=== PATIENT | female | born 1985 | race Caucasian/White ===

== ENCOUNTER 2016-04-03 02:15 | Emergency (ER) | payer OTHER ==
[~2016-04-03] VITALS: Ht 175.3 cm; Wt 100.0 kg
[~2016-04-03 02:15] MED LIST: CITA20TA11 PO; HYDR-656 PO; INDO75CA2 PO; POLY17PO6 PO; TRAM50TA2 PO
[2016-04-03 02:19] VITALS: BP 117/88; PULSE 76; RESP 16; O2SAT 98
--- NOTE | 2016-04-03 02:44 | ED.REPORT ---
HPI-Headache Date of Service Apr 03, 2016 ED Provider: J Carlos Keane Patient is a 30 year old female who presents to the ED complaining of a headache onset 5 hours ago. Associated symptoms include fever, nausea, and photophobia. She denies neck stiffness, head trauma, numbness, tingling, or any other symptoms. She claims this is much worse than any headache she has had before. Her sister has a hx of migraines and her mother had a brain bleed. Nursing Notes Stated Complaint: MIGRAINE Chief Complaint: Neuro Symptoms/ Deficits Nursing Notes Reviewed: Yes Allergies: Coded Allergies: Penicillins (Verified Allergy, Unknown, Rash,Itching,, 04/03/16) Swelling, redness Sulfa (Sulfonamide Antibiotics) (Verified Allergy, Unknown, Rash,Itching, , 04/03/16) Swelling, redness amoxicillin (Verified Allergy, Unknown, Rash,Itching,, 04/03/16) Swelling, redness clindamycin (Verified Allergy, Unknown, Rash, 04/03/16) Swelling, redness tetracycline (Verified Allergy, Unknown, Rash, 04/03/16) Swelling, redness Scheduled Citalopram (Citalopram) 20 Mg Tablet 20 MG PO HS hydrOXYzine Hcl (HydrOXYzine Hcl) 25 Mg Tablet 25 MG PO HS Scheduled PRN Indomethacin ER (Indomethacin ER) 75 Mg Capsule 75 MG PO DIRECTED PRN PRN Headache Prochlorperazine Maleate (Compazine Suppository) 25 Mg Supp.rect 25 MG RC Q8 PRN PRN For Nausea/Vomiting Sumatriptan (Imitrex) 100 Mg Tablet 100 MG PO t8rackm PRN PRN migraine Tramadol (Tramadol) 50 Mg Tablet 50 MG PO Q4H PRN PRN For Pain Miscellaneous Medications Polyethylene Glycol 3350 (Miralax) 17 Gm Powd.pack 17 GM PO General Time Seen by MD: 02:43 Chief Complaint Headache Hx Obtained From: Patient, Other family... (Grandmother) Arrived By: Walk-in Sudden in Onset?: Yes Onset Occurred: 5 - 8 hours ago Symptom Duration: Since onset Similar Sx Previous: No Risk-Headache )( SAH Risk Stratification 1st degree relativeNo Anticoagulation therapy, No Hypertension, No Prior SAH RF Statements: Risk factors reviewed )( IC Mass Risk Stratification No HIV RF Statements: Risk factors reviewed Past Medical History Past Medical History Reports: Asthma Past Surgical History R oopherectomy, 2 right ovarian cyst removals, adhesions removed Reports: Cholecystectomy Family History Father had CABG x3 at age 44 Smoking History Never Smoker Social History Alcohol Use: "Social" Drug Use: Denies drug use Occupation estate manager in the hospital. Ambulatory Status Independent Review of Systems Constitutional: Reports: Fever Eyes: Reports: Photophobia GI: Reports: Nausea Musculoskeletal: Denies: Neck pain Neurologic: Reports: Headache, Denies: Numbness Complete sys rev & neg: except as marked. Physical Exam Initial Vital Signs Vital Signs (First) Date Time Temp Pulse Resp B/P Pulse Ox O2 Delivery O2 Flow Rate FiO2 04/03/16 02:19 36.4 76 16 117/88 98 Room Air Initial VS: Reviewed Respiratory: No respiratory distress Cardiovascular: Regular rate & rhythm, Heart sounds normal Abdomen / GI: Soft, Non-tender Skin: Warm, Dry Psychiatric: Mood/affect normal, Behavior normal, Normal thought content General/Constitutional: Awake, Alert, Well developed Alertness: Negative: Confused Head / Eyes: Atraumatic, Normocephalic Pupils: Positive: Photophobia L, Photophobia R Neck: Supple Neurologic: Oriented X3, Speech NL, No motor deficits, No sensory deficits Interpretation & Diagnostics Lab Results Interpretation Result Diagram: 04/03/16 0315 04/03/16 0315 Test 04/03/16 03:15 White Blood Count 6.5th/mm3 (3.8-10.1) Red Blood Count 4.73mil/mm3 (3.90-5.20) Hemoglobin 13.8g/dL (12.0-15.6) Hematocrit 40.0% (35.0-46.0) Mean Corpuscular Volume 84.6fL (81-100) Mean Corpuscular Hemoglobin 29.2pg (27.0-35.0) Mean Corpuscular Hemoglobin Concent 34.5% (32.0-37.0) Red Cell Distribution Width 12.4% (12.3-15.4) Platelet Count 225bil/L (150-400) Neutrophils (%) (Auto) 59.8% (40-74) Lymphocytes (%) (Auto) 31.9% (14-46) Monocytes (%) (Auto) 6.2% (4-12) Eosinophils (%) (Auto) 1.8% (0-5) Basophils (%) (Auto) 0% (0-3) Erythrocyte Sedimentation Rate 16mm/hr (0-32) Prothrombin Time 9.7sec (8.1-12.5) Prothromb Time International Ratio 0.91ratio Activated Partial Thromboplast Time 20.7sec (22.8-33.0) Sodium Level 139mEq/L (134-144) Potassium Level 3.6mEq/L (3.5-5.2) Chloride Level 103mEq/L (97-108) Carbon Dioxide Level 23mmol/L (18-29) Blood Urea Nitrogen 9mg/dL (6-20) Creatinine 0.69mg/dL (0.57-1.00) Estimat Glomerular Filtration Rate 145mL/min (>59) Glucose Level 118mg/dL (60-99) Calcium Level 8.7mg/dL (8.5-10.1) C-Reactive Protein 0.8mg/dL (0.0-0.5) CT Head Interpretation CT BRAIN IMPRESSION: Normal exam. No acute intracranial abnormality. Marianna Rudolph M.D. Study: Head CT no contrast Interpretation / Wet Read by: Interpret - Radiologist Re-Eval/Medical Decision Med Decision/Clinical Course 22-year-old female with a history of minor headaches in the past presents now with a first onset migraine type headache. She is photophobic and nauseated, but concern remains because she has a first-degree relative (mother) who had a brain bleed from an aneurysm. She also has several members of her family with migraine history. Neurologic exam is normal here. She has no neck stiffness. CT is negative for bleeding. She needs additional evaluation with MRA to evaluate for aneurysm. This needs to be arranged via her PCP. She is improved here with standard migraine cocktail and discharged in stable condition with sumatriptan and and Compazine as needed. Re-Evaluation/Progress : Time of Eval: 04:40 )( Patient Status: Condition improved Re-Evaluation/Progress Note: Patient is feeling better and requesting to go home. Discussed plan for discharge. Patient understands and agrees with plan. All questions addressed at this time. Counseled Regarding: Diagnosis, Lab results, Need for follow-up, When/why to return to ED Discharge & Departure Shift Change Sign-Out Response to Therapy: Improved Impression: Primary Impression: Migraine Disposition: Home Discharge Condition All VS Reviewed: Yes Condition: Improved Patient Instructions: Migraine Headache (ED) Additional Instructions: With your family history, an MRA would be advisable to evaluate for aneurysm. Call your doctor for follow-up and to arrange that study. Return if any immediate issues. Try sumatriptan for similar headaches in the future. You may also use Compazine as a suppository for headache and nausea. Referrals: Angela Chu PA-C (PCP) Scribe Attestation Portions of this note were transcribed by Luis Valera. I, Dr. Keane personally performed the history, physical exam and medical decision-making; I reviewed and confirmed the accuracy of the information in the transcribed note. Signed by: Luis Valera 04/03/16, 2507 copies to: Angela Chu PA-C, Christopher W MD Apr 03, 2016 02:43 LUIS VALERA Apr 03, 2016 02:51
[2016-04-03] MEDS ORDERED: 0.9% Sodium Chloride 1,000 ML IV ONE (02:46)
[2016-04-03] MEDS ORDERED: Dexamethasone 10 mg/mL Inj IVPUSH ONE (02:50)
[2016-04-03] MEDS ORDERED: Ondansetron 2 mg/mL 2 mL Inj IVPUSH ONE (02:50)
[2016-04-03] MEDS ORDERED: Haloperidol 5 mg/mL Inj IVPUSH ONE (02:50)
[2016-04-03 03:29] LABS: BASOPHILS % (AUTO) 0 % (0-3); EOSINOPHILS % (AUTO) 1.8 % (0-5); MONOCYTES % (AUTO) 6.2 % (4-12); Mean Corpuscular Hemoglobin 29.2 pg (27.0-35.0); Mean Corpuscular Volume 84.6 fL (81-100); NEUTROPHILS % (AUTO) 59.8 % (40-74); Platelet Count 225 bil/L (150-400)
[2016-04-03 03:51] LABS: INR 0.91 ratio
[2016-04-03 03:55] LABS: ERYTHROCYTE SEDIMENTATION RATE 16 mm/hr (0-32)
[2016-04-03 03:56] VITALS: BP 119/80; PULSE 89; RESP 14; O2SAT 100
[2016-04-03] MEDS ORDERED: IMI100 PO (04:45)
[2016-04-03] MEDS ORDERED: PROC25SU30 RC (04:45)
[2016-04-03 05:04] VITALS: BP 128/86; PULSE 104; RESP 16; O2SAT 97
--- NOTE | 2016-04-03 14:22 | DRSVH ---
PROCEDURE: CT BRAIN WITHOUT CONTRAST ([id number]) INDICATIONS: acute headache vomiting +fam hx aneurysm TECHNIQUE: Noncontrast 4.5 mm thick angled axial sections acquired from the foramen magnum to the vertex, with c oronal reformats. COMPARISON: [facility], CT, BRAIN W/O CONTRAST, 08/05/2009, 22:37. FINDINGS: Image quality: Excellent. CSF spaces: Basal cisterns are patent. No extra-axial fluid collections. Ventricles are normal in size and shape. Brain: No midline shift. No intracranial masses or hemorrhage. Puente-white matter interface is norm al. Skull and face: Calvarium and visualized facial bones are intact, without suspicious lesions. Sinuses: Visualized sinuses and mastoids are clear. IMPRESSION: No acute intracranial process. Dictated by: Demi Copeland M.D. on 04/03/2016 at 14:16 Approved by: Demi Copeland M.D. on 04/03/2016 at 14:20
[2016-04-04] MEDS ORDERED: DULO60CA61 PO (14:49)
== END 2016-04-03 05:06 | disposition home or self-care (01) ==
LOC: SED 02:15
DX: G43.909 Migraine, unspecified, not intractable, without status migrainosus (principal); R50.9 Fever, unspecified; J45.909 Unspecified asthma, uncomplicated; Z88.0 Allergy status to penicillin; Z88.1 Allergy status to other antibiotic agents; Z88.2 Allergy status to sulfonamides
CPT/HCPCS: 36415; 70450; 80048; 85025; 85610; 85651; 85730; 86140; 96361; 96374; 96375; 99285; J1100; J1200; J1630; J2405; J7030

== ENCOUNTER 2016-04-05 09:16 | Day surgery (SDC) | payer OTHER ==
[~2016-04-05] VITALS: Ht 175.3 cm; Wt 100.0 kg
[~2016-04-05 09:16] MED LIST changes: -CITA20TA11 PO; +DULO60CA61 PO; +IMI100 PO; +Lactated Ringer's 1,000 ML IV ONE; +PROC25SU30 RC
[2016-04-05] MEDS ORDERED: Propofol 10,000 mCg/mL 20 mL Inj ONE (09:17)
[2016-04-05] MEDS ORDERED: fentaNYL-PF 50 mCg/mL 2 mL Inj ONE (09:17)
[2016-04-05 09:22] VITALS: BP 123/90; PULSE 102; RESP 16; O2SAT 97
[2016-04-05] MEDS ORDERED: Lactated Ringer's 500 ML IV PRN (09:47)
[2016-04-05] MEDS ORDERED: Lactated Ringer's 1,000 ML IV SCH (09:47)
[2016-04-05] MEDS ORDERED: Atropine 0.4 mg/mL Inj IVPUSH PRN (09:50)
[2016-04-05] MEDS ORDERED: MetoCLOpramide 5 mg/mL 2 mL Inj IVPUSH PRN (09:50)
[2016-04-05] MEDS ORDERED: Ondansetron 2 mg/mL 2 mL Inj IVPUSH PRN (09:50)
--- NOTE | 2016-04-05 09:53 | PCM.HPANE ---
Patient Data Surgeon Admitting Provider: Attending Provider:Nelson Ogden MD Primary Care Physician:Erin Ascencio Other Provider:Clara Bartholomew Anesthesia Reason for Visit Epigastric Abdominal Pain Ht/WT & BMI Height (Feet): 5 Height (Inches): 9 Weight (Kilograms): 100 Body Mass Index 32.00 Allergies Coded Allergies: Penicillins (Verified Allergy, Unknown, Rash,Itching,, 04/03/16) Swelling, redness Sulfa (Sulfonamide Antibiotics) (Verified Allergy, Unknown, Rash,Itching, , 04/03/16) Swelling, redness amoxicillin (Verified Allergy, Unknown, Rash,Itching,, 04/03/16) Swelling, redness bacitracin (Verified Allergy, Unknown, 04/04/16) clindamycin (Verified Allergy, Unknown, Rash, 04/03/16) Swelling, redness neomycin (Verified Allergy, Unknown, 04/04/16) polymyxin B (Verified Allergy, Unknown, 04/04/16) tetracycline (Verified Allergy, Unknown, Rash, 04/03/16) Swelling, redness Past Anesthesia History Anesthesia History: Denies:: Abnormal Airway, Anesthesia Reactions, Difficult Intubation, Fam Anesthesia Reaction, Fam Malignant Hypertherm, Malignant Hyperthermia Diabetes History Hx Diabetes?: No MRSA MRSA: Yes (lip, 8 years ago) Medications Hypertension Medication: No Home Meds Incl Beta Dev: No Active Scripts Sumatriptan (Imitrex)100 Mg [id number] Mg PO [id number] PRN migraine #10 TABLET Prov:Caden Keane MD 04/03/16 Prochlorperazine Maleate (Compazine Suppository)25 Mg Supp.rect25 Mg RC Q8 PRN For Nausea/Vomiting #10 SUPP.RECT Prov:Caden Keane MD 04/03/16 Reported Medications Duloxetine 60 Mg Capsule.dr60 Mg PO DAILY Ref 0 04/04/16 Tramadol 50 Mg Queark67 Mg PO Q4H PRN For Pain Ref 0 09/06/15 Polyethylene Glycol 3350 (Miralax)17 Gm Powd.pack17 Gm PO 09/06/15 Indomethacin ER 75 Mg Dmxdrry59 Mg PO DIRECTED PRN Headache #60 06/06/15 hydrOXYzine Hcl (HydrOXYzine Hcl)25 Mg Rvpxrb90 Mg PO HS #30 06/06/15 Discontinued Reported Medications Citalopram 20 Mg Gywkro34 Mg PO HS #30 06/06/15 History History of ENT Problems?: No HEENT History: Denies:: Abnormal Airway Difficult Intubation Dysphagia Hearing Problem Hx of Heart Problems?: No Cardiovascular History: Denies:: AICD Atrial Fibrillation Chest Pain Congestive Heart Failure Hypertension Pacemaker Valvular Heart Disease Hx of Respiratory Problem?: Yes Respiratory History: Positive for:: Asthma Denies:: COPD Chest Surgery Dyspnea Emphysema Hemoptysis Pneumonia Tuberculosis Hx Neurologic Problems?: No Neurological History: Denies:: CVA Hx of GI Problems?: Yes Gastrointestinal History: Positive for:: Gall Bladder Disease Gastroesphageal Reflux Hiatal Hernia Denies:: Cirrhosis Diverticulitis Liver Disease Rectal Bleeding Hx of Problems?: Yes Genitourinary History: Positive for:: Urinary Tract Infection Denies:: HX of Hemodialysis Kidney Stones HX of Peritoneal Dialysis: No Female Hx: Denies:: Currently Endometriosis Pelvic Inflammatory Problems with Breasts? Hx Musculoskeletal Problems?: No Musculoskeletal History: Positive for:: Fibromyalgia (chronic opioids) Denies:: Joint Replacement Hx of Psycho/Social Problems?: No Psycho Social History: Positive for:: Anxiety Hx Depression Hx Surgeries?: Yes (gallbladder, right oophrectomy,wisdom teeth) Hx Any Other Health Problems?: No Other History: Denies:: Cancer Endocrine Disease Hospitalization Thyroid Disease History Blood Transfusions: Denies:: Blood Transfusions Hx Diabetes: No Hx Alcohol Use: Yes (occas)Hx Substance Use: No Smoking Status: Never Smoker Have You Smoked inLast 12 mo: No Stop/Bang Treated for Sleep Apnea?: No Do You Have a CPAP Machine?: No S-Snoring: Do You Snore Loudly: Yes T-Tired: feel tired, fatigued: Yes O-Obsered: Observed not breath: No P-Blood Pressure: treated: No B- Body Mass Index > 35 kg/m2: No A- Age over 50: No N- Neck Large Circumference: No G- Gender Male: No PETE Total Score: 2 PETE Risk Assessment: Low Risk, <3 Yes Risk Assessment Category Category 1A: Patient has history of documented sleep apnea, and HAS NOT received any narcotic, sedative or anesthesia administration during this stay. Category 1B: Patient has history of documented sleep apnea, and HAS received any narcotic , sedative or anesthesia administration during this stay Category 2: Patient has SUSPECTED Obstructive Sleep Apnea, and HAS received any narcotic , sedative or anesthesia administration during this stay. Category 3: Patient has SUSPECTED Obstructive Sleep Apnea and HAS NOT received narcotic, sedative or anesthesia administration during this stay. Category 4: Outpatient in Procedural Areas with known sleep apnea or who screen positive for High Risk via the STOP/BANG questionnaire. Exam Exam Vital Signs Vital Signs Date Time Temp Pulse Resp B/P Pulse Ox O2 Delivery O2 Flow Rate FiO2 04/05/16 09:22 36.0 102 16 123/90 97 Room Air General Appearance: Alert, Oriented X3, Cooperative, No Acute Distress HEENT/AIRWAY: MP 2 Lungs: Clear to Auscultation, Normal Air Movement Heart: Exam Unremarkable, Regular Rate/Rhythm, No Murmurs/Rubs/Gallops Plan Impression Patient chart reviewed, patient interviewed and anesthestic plan with risks, benefits, and alternatives discussed, and informed consent obtained. ASA Physical Status: ASA3 Severe Disease Anesthetic Plan: GA, MAC Bene/Risks/Altern/Consents: Yes HP Complete Prior to Induction: Yes Omar Fisher MD Apr 05, 2016 09:38
[2016-04-05 10:15] VITALS: BP 115/85; PULSE 80; RESP 16; O2SAT 95
--- NOTE | 2016-04-05 10:17 | PCM.ANEP2 ---
Post Anesthesia Evaluation ASA/CMS Post Anesthesia VS in Patient's Normal Range?: Yes Resp Stable; Airway Patent?: Yes CV Function & Hydration Stable: Yes Mental Status Recovered?: Yes Pain control Satisfactory?: Yes N/V Control Satisfactory?: Yes Omar Fisher MD Apr 05, 2016 10:17
[2016-04-05 10:22] VITALS: BP 130/85; PULSE 75; RESP 16; O2SAT 98
[2016-04-05 10:33] VITALS: BP 127/84; PULSE 82; RESP 16; O2SAT 97
--- NOTE | 2016-04-05 10:35 | ENDO ---
[address] [address] ENDOSCOPY PROCEDURE PATIENT: PERRY MACK : 1985 MR#: [id number] ADMIT: 04/05/2016 JOB ID: [id number] DATE OF SERVICE: 04/05/2016 PROCEDURE PERFORMED: Esophagogastroduodenoscopy. INDICATION: Epigastric abdominal pain. ASA CLASSIFICATION, MALLAMPATI SCORE AND MEDICATIONS: Please see Dr. Omar Fisher's anesthesia report for details regarding ASA classification, Mallampati score and medications. INSTRUMENT USED: [id number]. PROCEDURE DETAILS: After informed consent was obtained, the patient was brought into the GI suite, where she was placed on oxygen via nasal cannula and monitored with continuous pulse oximeter, telemetry, and blood pressure monitoring. A time-out was performed. Then, she was placed in the left lateral decubitus position, and medications were administered for sedation. A bite block was placed. A standard EGD scope was inserted through the bite block and advanced under direct visualization to the second portion of the duodenum without difficulty. FINDINGS: 1. Normal appearing duodenal bulb, first and second portions. Multiple random biopsies were obtained. I was able to visualize the ampulla, and it appeared normal. 2. Normal appearing pylorus, antrum and gastric body. 3. Retroflexed views in the gastric body revealed normal appearing cardia and fundus. 4. Multiple random biopsies were obtained throughout the antrum and body of the stomach. 5. The GE junction was at 38 cm. At the GE junction, there was erythema extending a short segment into the distal esophagus. Appearance was consistent with esophagitis. Multiple biopsies were obtained. The remainder of the esophagus appeared unremarkable otherwise. IMPRESSION: 1. Mild esophagitis. 2. Otherwise normal exam to the second portion of the duodenum. No findings to explain the patient's chronic epigastric abdominal pain. RECOMMENDATIONS: 1. Await biopsy results. 2. Follow up in GI clinic. COMPLICATIONS: None. ESTIMATED BLOOD LOSS: Less than 5 mL.
--- NOTE | 2016-04-06 13:27 | PATH ---
SURGICAL PATHOLOGY Attending Physician:Caprice Ruiz CASE STATUS: Signed Out PATIENT NAME: PERRY MACK PID: [id number] : 1985 DATE COLLECTED:04/05/2016 16:28 SPECIMEN: 1: Gastric, Biopsy 2: Duodenum, Biopsy 3: Esophagus, Biopsy CLINICAL HISTORY: 1.GASTRIC BXS 2. DUODENUM BXS 3. DISTAL ESOPHAGUS BXS FINAL DIAGNOSIS: 1.GASTRIC BIOPSIES: MILD CHRONIC GASTRITIS INVOLVING FUNDIC AND ANTRAL MUCOSA. Negative for evidence of Helicobacter. Negative for intestinal metaplasia. Negative for dysplasia and malignancy. 2.DUODENUM BIOPSIES: CHANGES CONSISTENT WITH CHRONIC DUODENITIS WITH FOCAL AREAS OF FOVEOLAR METAPLASIA. Negative for evidence of celiac disease. Negative for dysplasia and malignancy. 3.DISTAL ESOPHAGUS BIOPSIES: SQUAMOUS MUCOSA AND GASTRIC CARDIA-TYPE MUCOSA WITH CHRONIC INFLAMMATION AND REACTIVE EPITHELIAL CHANGES. Negative for specialized metaplasia of Gonzales' s-type esophagus. Negative for dysplasia and malignancy. Scattered eosinophils present within squamous epithelium consistent with changes of chronic reflux. ICD10 code K29.70 GROSS DESCRIPTION: The specimen is received in three formalin filled containers labeled with the patient's name. 1). The specimen is sublabeled "gastric" and consists of multiple portions of tissue which aggregate to 0.4 x 0.4 x 0.3 CM. The specimen is entirely submitted in cassette 1A. 2). The specimen is sublabeled "duodenum" and consists of 5 portions of tissue which aggregate to 0.4 x 0.4 x 0.3 CM. The specimen is entirely submitted in cassette 2A. 3). The specimen is sublabeled "distal esophagus" and consists of 2 portions of tissue which aggregate to 0.2 x 0.2 x 0.2 CM. The specimen is entirely submitted in cassette 3A. 04/05/2016 [facility] [facility] MICRO DESCRIPTION: See diagnosis. ICD-9 CODES: CPT CODES: 1: 46733 2: 73808 3: 99853 Electronically Signed Out Corey Fountain MD [facility] [address], [place] [address] Technical component performed at [facility], [facility] [address], [address]
== END 2016-04-05 23:59 | disposition home or self-care (01) ==
LOC: END 09:16
PROVIDERS: ATTEND Internal Medicine Gastroenterology
DX: K29.50 Unspecified chronic gastritis without bleeding (principal); K29.80 Duodenitis without bleeding; K21.9 Gastro-esophageal reflux disease without esophagitis; J30.9 Allergic rhinitis, unspecified; H52.209 Unspecified astigmatism, unspecified eye
CPT/HCPCS: 43239; J2250; J3010; J7120